=== PATIENT | female | born 1940 | race Caucasian/White ===

== ENCOUNTER 2017-12-01 12:06 | Emergency (ER) | payer MEDICARE, BC, SELFPAY ==
[2017-12-01 12:16] VITALS: BP 136/119; PULSE 58; RESP 16; TEMP 36.3; O2SAT 99
--- NOTE | 2017-12-01 12:22 | DI.RAD.S_ITS ---
PROCEDURE: XR CHEST 2V INDICATIONS: shortness of breath TECHNIQUE: 2 views of the chest were acquired. COMPARISON: None. FINDINGS: Surgical changes and devices: Surgical clip right upper quadrant.. Lungs and pleura: No pleural effusions or pneumothorax. Lungs are clear. Mediastinum: Mediastinal contours are normal. Heart size is normal. Aorta shows calcifications and mild tortuosity. Bones and chest wall: No suspicious bony abnormalities. Soft tissues appear unremarkable. IMPRESSION: No acute cardiopulmonary abnormality. Dictated by: Marco Antonio Ochoa M.D. on 12/01/2017 at 12:55 Approved by: Marco Antonio Ochoa M.D. on 12/01/2017 at 12:56
--- NOTE | 2017-12-01 12:58 | ED.SOB ---
HPI - SOB/Dyspnea General Chief Complaint: Shortness of Breath/Dyspnea Stated Complaint: FEELS LIKE SWELLING ALL OVER,TROUBLE BREATHING Time Seen by Provider: 12/01/17 12:25 Source: patient Mode of arrival: ambulatory Limitations: no limitations History of Present Illness 76-year-old female here for evaluation of shortness of breath. Patient states that it occurred on the morning arrival to the emergency department. She states that it was a fairly sudden onset however has improved somewhat by the time she was evaluated by myself. She denied any other symptoms the time to include chest pain or dizziness or palpitations. 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 Patient has no history of DVTs. 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 Has not tried anything for her presenting symptoms prior to arrival. Related Data Home Medications Medication Instructions Recorded Confirmed aspirin 81 mg PO DAILY 12/01/17 12/01/17 carvedilol 1 tab PO BID 12/01/17 12/01/17 cholecalciferol (vitamin D3) 1,000 unit PO Q OTHER DAY 12/01/17 12/01/17 [Vitamin D3] clonidine HCl 1 tab PO BID 12/01/17 12/01/17 coenzyme Q10 [Co Q-10] 100 mg PO DAILY 12/01/17 12/01/17 ginkgo biloba 1 cap PO DAILY 12/01/17 12/01/17 lovastatin 20 mg PO QPM 12/01/17 12/01/17 omega 3-uog-wdu-fish oil [Fish Oil] 1 cap PO DAILY 12/01/17 12/01/17 Allergies Allergy/AdvReac Type Severity Reaction Status Date / Time lisinopril Allergy Severe ANGIOEDEMA Unverified 08/17/17 12:05 Sulfa (Sulfonamide Allergy Unknown Unverified 08/17/17 12:05 Antibiotics) Review of Systems Constitutional Denies fatigue, Denies fever(s) and Denies headache(s) ENT Ears, Nose, Mouth, and Throat: Denies dizziness, Denies headache(s), Denies lip swelling, Denies throat swelling and Denies tongue swelling Cardiovascular Denies chest pain, Denies palpitations and Reports dyspnea Respiratory Denies change in phlegm color, Denies cough, Reports dyspnea, Denies stridor and Denies wheezing Gastrointestinal Gastrointestinal: Denies abdominal pain, Denies diarrhea, Denies nausea and Denies vomiting Genitourinary Denies dysuria Musculoskeletal Denies myalgias and Denies arthralgias Integumentary/Breasts Denies lesions and Denies rash Neurologic Denies dizziness and Denies headache(s) Endocrine Denies fatigue, Denies flushing and Denies palpitations Hematologic/Lymphatic Denies easy bleeding and Denies easy bruising Allergic/Immunologic Denies urticaria, Denies lip swelling, Denies throat swelling, Denies tongue swelling and Denies wheezing [facility] Medical History Hypertension (Acute) Social History Smoking Status: Never smoker Comment: I reviewed patient's past medical history past surgical history social history and family history with her. Exam Initial Vital Signs Initial Vital Signs: Vital Signs Temperature 97.4 F L 12/01/17 12:16 Pulse Rate 58 L 12/01/17 12:16 Respiratory Rate 16 12/01/17 12:16 Blood Pressure 136/119 H 12/01/17 12:16 Pulse Oximetry 99 12/01/17 12:16 Const General: cooperative, healthy appearing, comfortable, well developed, well groomed and No acute distress Nutritional Appearance: average body habitus Orientation: alert, awake and oriented x3 [facility] Head: normal to inspection, normocephalic and atraumatic Resp Effort & Inspection: normal respiratory effort, no cough, not labored, no nasal flaring, no respiratory distress, no retractions, no stridor, not tachypneic and no use of accessory muscles Auscultation: clear to auscultation bilaterally, breath sounds present, no crackles, lung sounds not diminished, no rales, no rhonchi and no wheezes Cardio Rate: regular rate Rhythm: regular rhythm Pulses: radial pulses present GI Inspection: non-distended Palpation: soft, No firm and No tender Skin Lesions: no lesions Rashes: no rashes Neuro General: alert, awake and oriented x3 Cognition: normal cognition Speech: speech normal Extrem General: No no pedal edema (1+ pitting edema left ankle none on the right) and no calf tenderness Psych Appearance: grossly normal and well kempt Course Orders Ordered: ED Orders 12/01/17 12:22 Consult to Respiratory Therapy Evaluate & Treat XR chest 2V Stat EKG-12 Lead Stat 12/01/17 13:15 Complete Blood Count AUTO DIFF Stat Comprehensive Metabolic Panel Stat 12/01/17 13:49 CT angio chest PE protocol Stat 12/01/17 13:55 Lactate (Lactic Acid) Stat Vital Signs - 8 hr 12/01/17 12:16 12/01/17 13:30 12/01/17 14:00 Temperature 97.4 F L Pulse Rate 58 L 61 57 L Respiratory Rate 16 14 13 Blood Pressure 136/119 H Blood Pressure [Right Arm] 160/85 H 160/85 H Pulse Oximetry 99 98 97 MDM - SOB/Dyspnea Lab Data Attestation: I reviewed the patient's lab results. Result diagrams: 12/01/17 13:15 12/01/17 13:15 Lab Results 12/01/17 12/01/17 12/01/17 Range/Units 13:15 13:15 13:55 WBC 5.5 (4.5-11.0) X10^3/uL RBC 4.45 (4.0-5.2) X10^6/uL Hgb 13.2 (12.0-16.0) g/dL Hct 37.8 (36-46) % MCV 85.1 (80-100) fL MCH 29.6 (26-34) PG MCHC 34.8 (30-36) % RDW 13.5 (11.6-14.8) % Plt Count 145 L (150-400) X10^3/uL Neut % (Auto) 54.5 (50-75) % Lymph % (Auto) 35.9 (25-40) % Carver % (Auto) 7.0 (3-14) % Eos % (Auto) 1.8 L (2-4) % Baso % (Auto) 0.8 (0-2) % Neut # (Auto) 3000 (3964-9657) /uL Sodium 140 (137-145) mmol/L Potassium 4.0 (3.4-5.1) mmol/L Chloride 105 (98-107) mmol/L Carbon Dioxide 28 (22-32) mmol/L BUN 16 (7-17) mg/dL Creatinine 0.60 (0.52-1.04) mg/dL Estimated GFR > 60.0 (>60) mL/min BUN/Creatinine Ratio 26.7 H (6-22) Glucose 139 H (80-110) mg/dL Lactate 1.0 (0.7-2.1) mmol/L Calcium 9.3 (8.4-10.2) mg/dL Total Bilirubin 0.7 (0.2-1.3) mg/dL AST 30 (14-36) IU/L ALT 33 (9-52) IU/L Alkaline Phosphatase 81 (38-126) U/L Total Protein 6.7 (6.3-8.2) g/dL Albumin 4.2 (3.5-5.0) g/dL Globulin 2.5 (1.7-4.1) g/dL Albumin/Globulin Ratio 1.7 (1.0-2.8) Imaging Data CT scan - chest: Radiologist's impression: PROCEDURE: CT ANGIO CHEST PE PROTOCOL INDICATIONS: Sudden Shortness of breath with Left lower extremity swelling TECHNIQUE: After the administration of intravenous contrast, 2 mm thick sections acquired from the pulmonary apices to the posterior costophrenic angles. 3-dimensional maximum intensity projection (MIP) coronal and sagittal reformats were then acquired through the thorax. For radiation dose reduction, the following was used: automated exposure control, adjustment of mA and/or kV according to patient size. COMPARISON: None. FINDINGS: Image quality: Limited by suboptimal contrast opacification of the segmental and subsegmental pulmonary arteries and patient motion. Pulmonary arteries: Pulmonary arteries are normal in size, and demonstrate no intraluminal filling defects to suggest large central pulmonary embolism. Lungs and pleura: Lungs are clear. No pleural effusions or pneumothorax. Central and peripheral airways are patent. Mediastinum: Heart size is normal. Small pericardial fluid collection noted. No mediastinal or hilar adenopathy. Thoracic aorta is normal in caliber and enhancement. Esophagus is normal in caliber, without hiatal hernia. Bones and chest wall: No suspicious bony lesions. Ribs and thoracic spine appear intact throughout. Spine degenerative disc disease and facet arthropathy. Thyroid gland contains an 8mm partially calcified nodule in the left lobe. No axillary or supraclavicular adenopathy. Abdomen: The gallbladder is surgically absent. Visualized upper abdominal solid organs appear normal in the early arterial phase of enhancement. IMPRESSION: 1. Diagnostic sensitivity study limited by suboptimal contrast opacification of the segmental and subsegmental pulmonary arteries and patient motion artifact. 2. No large central pulmonary embolus. Small pulmonary emboli involving the segmental and subsegmental pulmonary arteries cannot be completely excluded. 3. No lung consolidation. 4. Atherosclerosis including the coronary vasculature. 5. Small pericardial fluid collection. Dictated by: Selena Becerril MD, PhD on 12/01/2017 at 14:29 Approved by: Selena Becerril MD, PhD on 12/01/2017 at 14:38 Chest x-ray: Radiologist's impression: PROCEDURE: XR CHEST 2V INDICATIONS: shortness of breath TECHNIQUE: 2 views of the chest were acquired. COMPARISON: None. FINDINGS: Surgical changes and devices: Surgical clip right upper quadrant.. Lungs and pleura: No pleural effusions or pneumothorax. Lungs are clear. Mediastinum: Mediastinal contours are normal. Heart size is normal. Aorta shows calcifications and mild tortuosity. Bones and chest wall: No suspicious bony abnormalities. Soft tissues appear unremarkable. IMPRESSION: No acute cardiopulmonary abnormality. Dictated by: Marco Antonio Ochoa M.D. on 12/01/2017 at 12:55 MDM Narrative Medical decision making narrative: Patient is not in respiratory distress. She is not tachycardic. Is hypertensive. Does have 1+ pitting edema in her left ankle however upon further evaluation she states that this is not new and is from and a prior ankle injury. CT of her chest was negative for central pulmonary embolism. Timing was off so peripheral clots could not be completely excluded however given her presentation I feel that this is unlikely. Upon my re-evaluation to discuss the CTA results patient stated that her symptoms were even better than what they were during my initial evaluation and states that she felt like she was almost back to normal again. The rest of her physical exam is not consistent with angioedema. Not clinically in heart failure. I feel the small pericardial effusion that was noted on the CTA is not the cause of her symptoms today. I discussed all this with the patient. She was given return precautions. She was instructed to follow up with her primary care doctor. Her is at bedside for these discussions. She expressed understanding and agreement with plan. Discharge Plan Departure Patient Disposition: Home, Self-Care Clinical Impression: Shortness of breath Discharge Date/Time: 12/01/17 15:25 Interventions: ED Discharge Assessment Last Done: 07/26/18 15:21 Instructions: DI for Shortness of Breath Activity Restrictions/Additional Instructions: continue all of your medications as instructed. Recommend that you contact your primary care doctor's office tomorrow to schedule a follow-up visit. Return to the emergency department for any new or worsening symptoms Prescriptions: No Action clonidine HCl 0.1 mg tablet 1 tab PO BID RF: 0 carvedilol 6.25 mg tablet 1 tab PO BID RF: 0 lovastatin 20 mg tablet 20 mg PO QPM RF: 0 aspirin 81 mg Tablet,Delayed Release (Dr/Ec) 81 mg PO DAILY RF: 0 cholecalciferol (vitamin D3) [Vitamin D3] 1,000 unit Capsule 1,000 unit PO Q OTHER DAY RF: 0 coenzyme Q10 [Co Q-10] 100 mg Capsule 100 mg PO DAILY RF: 0 omega 6-avn-owa-fish oil [Fish Oil] 1,000 mg (120 mg-180 mg) Capsule 1 cap PO DAILY RF: 0 ginkgo biloba 1 cap PO DAILY RF: 0
[2017-12-01 13:30] VITALS: BP 160/85; PULSE 61; RESP 14; O2SAT 98
[2017-12-01 13:44] LABS: Add Manual Diff / Slide Review NO; Alanine Aminotransferase 33 IU/L (9-52); Albumin 4.2 g/dL (3.5-5.0); Albumin Globulin Ratio 1.7 (1.0-2.8); Alkaline Phosphatase 81 U/L (38-126); Aspartate Aminotransferase 30 IU/L (14-36); BUN Creatinine Ratio 26.7 (6-22); Basophils Percent Auto 0.8 % (0-2); Bilirubin Total 0.7 mg/dL (0.2-1.3); Blood Urea Nitrogen 16 mg/dL (7-17); Calcium 9.3 mg/dL (8.4-10.2); Carbon Dioxide 28 mmol/L (22-32); Chloride 105 mmol/L (98-107); Eosinophils Percent Auto 1.8 % (2-4); Estimated Glomerular Filt Rate > 60.0 mL/min (>60); Globulin 2.5 g/dL (1.7-4.1); Glucose 139 mg/dL (80-110); HEMOLYSIS < 15 (0-50); Hematocrit 37.8 % (36-46); Hemoglobin 13.2 g/dL (12.0-16.0); Lymphocytes Percent Auto 35.9 % (25-40); Mean Corpuscular HGB Conc 34.8 % (30-36); Mean Corpuscular Hemoglobin 29.6 PG (26-34); Mean Corpuscular Volume 85.1 fL (80-100); Neutrophils Absolute Auto 3000 /uL (3000-5900); Neutrophils Percent Auto 54.5 % (50-75); Platelet Count 145 X10^3/uL (150-400); Red Blood Cell Count 4.45 X10^6/uL (4.0-5.2); Red Cell Distribution Width 13.5 % (11.6-14.8); Sodium 140 mmol/L (137-145); Total Protein 6.7 g/dL (6.3-8.2); White Blood Cell Count 5.5 X10^3/uL (4.5-11.0)
--- NOTE | 2017-12-01 13:49 | DI.CT.S_ITS ---
PROCEDURE: CT ANGIO CHEST PE PROTOCOL INDICATIONS: Sudden Shortness of breath with Left lower extremity swelling TECHNIQUE: After the administration of intravenous contrast, 2 mm thick sections acquired from the pulmonary apices to the posterior costophrenic angles. 3-dimensional maximum intensity projection (MIP) coronal and sagittal reformats were then acquired through the thorax. For radiation dose reduction, the following was used: automated exposure control, adjustment of mA and/or kV according to patient size. COMPARISON: None. FINDINGS: Image quality: Limited by suboptimal contrast opacification of the segmental and subsegmental pulmonary arteries and patient motion. Pulmonary arteries: Pulmonary arteries are normal in size, and demonstrate no intraluminal filling defects to suggest large central pulmonary embolism. Lungs and pleura: Lungs are clear. No pleural effusions or pneumothorax. Central and peripheral airways are patent. Mediastinum: Heart size is normal. Small pericardial fluid collection noted. No mediastinal or hilar adenopathy. Thoracic aorta is normal in caliber and enhancement. Esophagus is normal in caliber, without hiatal hernia. Bones and chest wall: No suspicious bony lesions. Ribs and thoracic spine appear intact throughout. Spine degenerative disc disease and facet arthropathy. Thyroid gland contains an 8mm partially calcified nodule in the left lobe. No axillary or supraclavicular adenopathy. Abdomen: The gallbladder is surgically absent. Visualized upper abdominal solid organs appear normal in the early arterial phase of enhancement. IMPRESSION: 1. Diagnostic sensitivity study limited by suboptimal contrast opacification of the segmental and subsegmental pulmonary arteries and patient motion artifact. 2. No large central pulmonary embolus. Small pulmonary emboli involving the segmental and subsegmental pulmonary arteries cannot be completely excluded. 3. No lung consolidation. 4. Atherosclerosis including the coronary vasculature. 5. Small pericardial fluid collection. Dictated by: Selena Becerril MD, PhD on 12/01/2017 at 14:29 Approved by: Selena Becerril MD, PhD on 12/01/2017 at 14:38
[2017-12-01 14:00] VITALS: BP 160/85; PULSE 57; RESP 13; O2SAT 97
[2017-12-01 15:21] VITALS: BP 176/67; PULSE 54; RESP 16; O2SAT 98
== END 2017-12-01 15:25 | disposition home or self-care (01) ==
PROVIDERS: Emergency Provider Emergency Medicine
DX: R06.02 Shortness of breath (principal)
CPT/HCPCS: 36415; 36591; 71046; 71275; 80053; 83605; 85025; 93005; 99283; 99285; Q9967

== ENCOUNTER → 2018-06-07 10:49 | Outpatient (CLI) | payer MEDICARE, SELFPAY ==
--- NOTE | 2018-06-07 | DI.MG.S_ITS ---
BILATERAL DIGITAL SCREENING MAMMOGRAM 3D/2D WITH CAD: 06/07/2018 CLINICAL: Routine screening. Family history of breast cancer. Comparison is made to exams dated: 05/31/2017 mammogram, 05/18/2016 mammogram, and 05/13/2015 mammogram - [facility]. The tissue of both breasts is heterogeneously dense. This may lower the sensitivity of mammography. Current study was also evaluated with a Computer Aided Detection (CAD) system. There are benign vascular calcifications in both breasts. There also is a benign biopsy clip in the left breast. No significant masses, calcifications, or other findings are seen in either breast. There has been no significant interval change. IMPRESSION: There is no mammographic evidence of malignancy. A 1 year screening mammogram is recommended. This exam was interpreted at Station ID: [id number]. NOTE: For mammograms, a report in lay terms will be sent to the patient. Approximately 15% of breast malignancies will not be visualized mammographically. In the management of a palpable breast mass, a negative mammogram must not discourage biopsy of a clinically suspicious lesion. Electronically Signed By: Tiffanie soto/carlyn:06/07/2018 13:49:38 letter sent: Normal Exam ACR BI-RADS Category 2: Benign Finding(s) 3342F
== END ==
PROVIDERS: PCP Internal Medicine; Visit Provider Internal Medicine
DX: Z12.31 Encounter for screening mammogram for malignant neoplasm of breast (principal); Z80.3 Family history of malignant neoplasm of breast
CPT/HCPCS: 77063; 77067

== ENCOUNTER → 2018-09-01 08:27 | Outpatient (CLI) | payer MEDICARE, SELFPAY ==
--- NOTE | 2018-09-01 | DI.US.S_ITS ---
PROCEDURE: US ABDOMEN COMPLETE INDICATIONS: ABDOMINAL DISTENTION TECHNIQUE: Real-time scanning was performed of the abdominal and retroperitoneal organs, with image documentation. COMPARISON: None. FINDINGS: Liver: Liver is normal in size and homogeneous in echotexture, slightly echogenic consistent with mild fatty infiltration. Gallbladder: The gallbladder appears surgically absent. Biliary ducts: Intrahepatic bile ducts are non-dilated. Extrahepatic bile duct caliber measures 6.5 mm. Normal is 6-7 mm or less in diameter, or 10 mm or less post-cholecystectomy. Pancreas: Visualized portions of the pancreas are sonographically normal. Spleen: Spleen is normal in size and homogeneous in echotexture. Kidneys: Kidneys are normal in size and echotexture. Right kidney measures 9.8 cm long; left kidney measures 10.7 cm long. No hydronephrosis or nephrolithiasis. No solid masses. Aorta: Visualized aorta is normal in caliber at less than 3 cm. Iliacs: Obscured by bowel gas. IVC: Intrahepatic inferior vena cava is patent. Miscellaneous: No free abdominal fluid. IMPRESSION: Prior cholecystectomy, mild fatty infiltration throughout the liver. No ascites found. Source of abdominal distention is not seen. Dictated by: Julien Lombardo M.D. on 09/01/2018 at 9:58 Approved by: Julien Lombardo M.D. on 09/01/2018 at 9:59
== END ==
PROVIDERS: PCP Internal Medicine; Visit Provider Internal Medicine
DX: R14.0 Abdominal distension (gaseous) (principal); K76.0 Fatty (change of) liver, not elsewhere classified; Z90.49 Acquired absence of other specified parts of digestive tract
CPT/HCPCS: 76700

== ENCOUNTER → 2019-06-15 14:14 | Outpatient (CLI) | payer MEDICARE, SELFPAY ==
--- NOTE | 2019-06-15 | DI.MG.S_ITS ---
BILATERAL DIGITAL SCREENING MAMMOGRAM 3D/2D WITH CAD: 06/15/2019 CLINICAL: Routine screening. Family history of breast cancer. Comparison is made to exams dated: 06/07/2018 mammogram, 05/31/2017 mammogram, and 05/18/2016 mammogram - [facility]. The tissue of both breasts is heterogeneously dense. This may lower the sensitivity of mammography. Current study was also evaluated with a Computer Aided Detection (CAD) system. There are benign calcifications in both breasts. There also are benign vascular calcifications in both breasts. Additionally, there is a biopsy clip in the left breast. No significant masses, calcifications, or other findings are seen in either breast. There has been no significant interval change. IMPRESSION: There is no mammographic evidence of malignancy. A 1 year screening mammogram is recommended. This exam was interpreted at Station ID: [id number]. NOTE: For mammograms, a report in lay terms will be sent to the patient. Approximately 15% of breast malignancies will not be visualized mammographically. In the management of a palpable breast mass, a negative mammogram must not discourage biopsy of a clinically suspicious lesion. Electronically Signed By: Tiffanie soto/carlyn:06/15/2019 16:18:29 letter sent: Normal Exam ACR BI-RADS Category 2: Benign Finding(s) 3342F
== END ==
PROVIDERS: PCP Family Medicine; Referring Provider Family Medicine; Visit Provider Family Medicine
DX: Z12.31 Encounter for screening mammogram for malignant neoplasm of breast (principal); Z80.3 Family history of malignant neoplasm of breast
CPT/HCPCS: 77063; 77067

== ENCOUNTER → 2020-02-13 13:06 | Outpatient (CLI) | payer MEDICARE, SELFPAY | PROVIDERS: PCP Internal Medicine; Referring Provider Physician Assistant Medical; Visit Provider Physician Assistant Medical | DX: M81.0 Age-related osteoporosis without current pathological fracture (principal); Z78.0 Asymptomatic menopausal state; E11.9 Type 2 diabetes mellitus without complications | CPT/HCPCS: 77080 ==

== ENCOUNTER → 2020-06-19 10:00 | Outpatient (CLI) | payer MEDICARE, SELFPAY ==
--- NOTE | 2020-06-19 10:03 | DI.MG.S_ITS ---
BILATERAL DIGITAL SCREENING MAMMOGRAM 3D/2D WITH CAD: 06/19/2020 CLINICAL: Routine screening. Family history of breast cancer. Comparison is made to exams dated: 06/15/2019 mammogram, 06/07/2018 mammogram, and 05/31/2017 mammogram - [facility]. The tissue of both breasts is heterogeneously dense. This may lower the sensitivity of mammography. Current study was also evaluated with a Computer Aided Detection (CAD) system. There are benign calcifications in both breasts. There also are benign vascular calcifications in both breasts. Additionally, there is a biopsy clip in the left breast. No significant masses, calcifications, or other findings are seen in either breast. There has been no significant interval change. IMPRESSION: BENIGN There is no mammographic evidence of malignancy. A 1 year screening mammogram is recommended. This exam was interpreted at Station ID: [id number]. NOTE: For mammograms, a report in lay terms will be sent to the patient. Approximately 15% of breast malignancies will not be visualized mammographically. In the management of a palpable breast mass, a negative mammogram must not discourage biopsy of a clinically suspicious lesion. Electronically Signed By: Hamlet faust/carlyn:06/19/2020 13:23:41 letter sent: Normal Exam ACR BI-RADS Category 2: Benign Finding(s) 3342F
== END ==
PROVIDERS: PCP Internal Medicine; Referring Provider Internal Medicine; Visit Provider Internal Medicine
DX: Z12.31 Encounter for screening mammogram for malignant neoplasm of breast (principal); Z80.3 Family history of malignant neoplasm of breast
CPT/HCPCS: 77063; 77067

== ENCOUNTER → 2021-06-23 11:24 | Outpatient (CLI) | payer MEDICARE, SELFPAY ==
--- NOTE | 2021-06-23 | DI.MG.S_ITS ---
BILATERAL DIGITAL SCREENING MAMMOGRAM 3D/2D WITH CAD: 06/23/2021 CLINICAL: Routine screening. Family history of breast cancer. Comparison is made to exams dated: 06/19/2020 mammogram, 06/15/2019 mammogram, and 06/07/2018 mammogram - [facility]. The tissue of both breasts is heterogeneously dense. This may lower the sensitivity of mammography. Current study was also evaluated with a Computer Aided Detection (CAD) system. There are benign calcifications in both breasts. There also are benign vascular calcifications in both breasts. Additionally, there is a biopsy clip in the left breast. No significant masses, calcifications, or other findings are seen in either breast. There has been no significant interval change. IMPRESSION: BENIGN There is no mammographic evidence of malignancy. A 1 year screening mammogram is recommended. This exam was interpreted at Station ID: [id number]. NOTE: For mammograms, a report in lay terms will be sent to the patient. Approximately 15% of breast malignancies will not be visualized mammographically. In the management of a palpable breast mass, a negative mammogram must not discourage biopsy of a clinically suspicious lesion. Electronically Signed By: Saray pickering/carlyn:06/23/2021 12:30:22 letter sent: Normal Exam ACR BI-RADS Category 2: Benign Finding(s) 3342F
== END ==
PROVIDERS: PCP Family Medicine; Referring Provider Physician Assistant; Visit Provider Physician Assistant
DX: Z12.31 Encounter for screening mammogram for malignant neoplasm of breast (principal); Z80.3 Family history of malignant neoplasm of breast
CPT/HCPCS: 77063; 77067

== ENCOUNTER → 2022-07-06 15:48 | Outpatient (CLI) | payer MEDICARE, SELFPAY ==
--- NOTE | 2022-07-06 | DI.MG.S_ITS ---
BILATERAL DIGITAL SCREENING MAMMOGRAM 3D/2D WITH CAD: 07/06/2022 CLINICAL: Routine screening. Family history of breast cancer. Comparison is made to exams dated: 06/23/2021 mammogram, 06/19/2020 mammogram, 06/15/2019 mammogram, and 06/07/2018 mammogram - [facility]. Both breasts are heterogeneously dense, which may obscure small masses (category c / 51-75% glandular tissue). Current study was also evaluated with a Computer Aided Detection (CAD) system. There are benign calcifications in both breasts. There also are benign vascular calcifications in both breasts. Additionally, there is a biopsy clip in the left breast. Bilateral scar markers. No significant masses, calcifications, or other findings are seen in either breast. There has been no significant interval change. IMPRESSION: BENIGN There is no mammographic evidence of malignancy. A 1 year screening mammogram is recommended. Based on the Tyrer Cuzick model (a risk assessment model) the patient's lifetime risk is 5.0% and her 10 year risk is 0.0%. According to the ACR, ACS, and NCCN guidelines, an annual breast MRI exam along with mammogram is recommended if the patient's lifetime risk is 20% or greater. This exam was interpreted at Station ID: [id number]. NOTE: For mammograms, a report in lay terms will be sent to the patient. Approximately 15% of breast malignancies will not be visualized mammographically. In the management of a palpable breast mass, a negative mammogram must not discourage biopsy of a clinically suspicious lesion. Electronically Signed By: Myron Thomas M.D. [facility] [place]/:07/07/2022 09:17:30 letter sent: Normal Exam ACR BI-RADS Category 2: Benign Finding(s) 3342F
== END ==
PROVIDERS: PCP Family Medicine; Referring Provider Physician Assistant; Visit Provider Physician Assistant
DX: Z12.31 Encounter for screening mammogram for malignant neoplasm of breast (principal); Z80.3 Family history of malignant neoplasm of breast
CPT/HCPCS: 77063; 77067